=== PATIENT | male | born 1955 | race Hispanic/Latino ===

== ENCOUNTER 2017-07-25 09:13 | Emergency (ER) | payer OTHER ==
[2017-07-25 09:18] VITALS: BP 157/91; PULSE 74; TEMP 97; O2SAT 96
[2017-07-25 09:19] VITALS: BMI 34.2
--- NOTE | 2017-07-25 10:51 | ED PDOC ---
HPI: Trauma/Fall - HPI Time Seen by Provider: 07/25/17 09:25 Chief Complaint (Nursing): ENT Problem Chief Complaint (Provider): Fall injury History Per: Patient History/Exam Limitations: no limitations Onset/Duration Of Symptoms: Days (x1) Injury Occurred (Timing): Just Before Arrival Location Of Injury: Right: Wrist Associated Symptoms: denies: Dizziness Additional Complaint(s): Kike Harmon is a 61 year old male, with no past medical history, who was brought to the emergency department by EMS for nose and right wrist injury s/p fall onset prior to arrival. Patient states that [place], fell forward and face planted. Patient thinks he might have passed out. He is currently complaining of an abrasion on nose bridge and right hand pain and swelling around wrist area. He denies any chest pain, dizziness, or neck pain. No further medical complaints. PMD: None provided. - Fall Fall:Prior To Injury: Tripped, Slipped Past Medical History Reviewed: Historical Data, Nursing Documentation, Vital Signs Vital Signs: Last Vital Signs Temp 97 F L 07/25/17 09:17 Pulse 74 07/25/17 09:17 Resp BP 157/91 H 07/25/17 09:17 Pulse Ox 96 07/25/17 11:37 - Medical History PMH: Hyperlipidemia - Surgical History Surgical History: No Surg Hx - Family History Family History: States: No Known Family Hx - Social History Current smoker - smoking cessation education provided: Yes (a pack per day) Alcohol: Social Drugs: Denies - Allergies Allergies/Adverse Reactions: Allergies Allergy/AdvReac Type Severity Reaction Status Date / Time No Known Allergies Allergy Verified 07/25/17 09:21 Review of Systems ROS Statement: Except As Marked, All Systems Reviewed And Found Negative ENT: Positive for: Nose Pain (nose bridge abrasion) Cardiovascular: Negative for: Chest Pain Musculoskeletal: Positive for: Hand Pain (right, with swelling around wrist area ). Negative for: Neck Pain Neurological: Negative for: Dizziness Physical Exam - Reviewed Nursing Documentation Reviewed: Yes Vital Signs Reviewed: Yes - Physical Exam Appears: Positive for: Non-toxic Head Exam: Positive for: ATRAUMATIC, NORMAL INSPECTION, NORMOCEPHALIC Skin: Positive for: Normal Color, Warm, Dry Eye Exam: Positive for: Normal appearance, EOMI, PERRL ENT: Positive for: Other (nasal bridge appear swollen and deformed with an abrasion, but no active bleeding. no other facial injuries. no stepoff or bony deformities) Neck: Positive for: Normal, Painless ROM, Supple Cardiovascular/Chest: Positive for: Regular Rate, Rhythm. Negative for: Murmur Respiratory: Positive for: Normal Breath Sounds. Negative for: Respiratory Distress Gastrointestinal/Abdominal: Positive for: Soft. Negative for: Tenderness Back: Positive for: Normal Inspection (No spinal tenderness). Negative for: L CVA Tenderness, R CVA Tenderness Extremity: Positive for: Normal ROM (right hand), Swelling (right wrist. Neurovascular intact). Negative for: Deformity Neurologic/Psych: Positive for: Alert, Oriented (x3). Negative for: Motor/ Sensory Deficits - Laboratory Results Result Diagrams: 07/25/17 10:30 07/25/17 10:30 - ECG O2 Sat by Pulse Oximetry: 96 (RA) Pulse Ox Interpretation: Normal Medical Decision Making Medical Decision Making: Initial Impression: nose and wrist injury s/p fall. Rule out fracture, rule out electrolyte abnormality. Initial Plan: --Head w/o contrast [CT] --Orbits/ Facials w/o contrast [CT] --EKG --Comp metabolic Panel --Troponin I --CBC w/ differential --Toradol 30 mg IV --Hand right 3 views [RAD] --Wrist, right 3 views [RAD] --reevaluation 11:[address] FINDINGS: HEMORRHAGE: No intracranial hemorrhage. BRAIN: No mass effect or edema. No atrophy or chronic microvascular ischemic changes. VENTRICLES: Unremarkable. No hydrocephalus. CALVARIUM: Unremarkable. PARANASAL SINUSES: Unremarkable as visualized. No significant inflammatory changes. MASTOID AIR CELLS: Unremarkable as visualized. No inflammatory changes. OTHER FINDINGS: None. IMPRESSION: No acute intracranial abnormalities. No significant findings to account for the clinical presentation. 11:05 Wrist X-Ray FINDINGS: BONES: No acute fracture is appreciated however the ulnar styloid appear separate from the base of its normal continuous location at the distal left ulna and is suspicious for either nonunited chronic fracture or unfused ossification center. No destructive bony lesions appreciated. The carpal bones are diffusely intact without fracture, including the navicular bone. JOINTS: Normal. No dislocation. SOFT TISSUES: Normal. OTHER FINDINGS: None. IMPRESSION: No suspicious right wrist findings. 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 11:07 Hand X-Ray FINDINGS: BONES: Normal. No fractureMacro rad bone. JOINTS: Degenerative osteophyte development and cortical sclerosis appreciated at the distal interphalangeal joint of the index finger with lesser similar changes present throughout the interphalangeal joints are more diffuse basis as well as throughout the carpal metacarpal articulations, compatible with degenerative joint disease. No dislocation or subluxation is appreciated throughout the exam. SOFT TISSUES: Normal. OTHER FINDINGS: None. IMPRESSION: No acute fracture dislocation identified. Limited degenerative joint changes seen throughout the distal digits and carpal metacarpal articulations diffusely but predominately at the left index distal interphalangeal joint. 11:[address] FINDINGS: RIGHT ORBIT: RIGHT BONY ORBIT: Normal. RIGHT INTRAORBITAL STRUCTURES: Globe: Normal. Extraocular muscles: Normal. Post septal space: Normal. Optic Nerve: Normal. Lacrimal Apparatus: Normal. RIGHT PRESEPTAL SOFT TISSUES: Normal. LEFT ORBIT: LEFT BONY ORBIT: Normal. LEFT INTRAORBITAL STRUCTURES: Globe: Normal. Extraocular muscles: Normal. Post septal space: Normal Optic Nerve: Normal. . Lacrimal Apparatus: Normal. LEFT PRESEPTAL SOFT TISSUES: Normal. OTHER: There is questionable left frontal soft tissue edema. Incidental leftward bony nasal septal deviation is appreciated on a chronic basis. IMPRESSION: Questionable left frontal soft tissue edema. No fracture of either orbit or significant postseptal findings either. pt aware of results of imaging. pt utd with tetanus. ekg, labs wnl. pt has no pain. neurologically intact. stable for dc. dx mechanical fall Scribe Attestation: Documented by Jameel Engle, acting as a scribe for Colin Navas MD Provider Scribe Attestation: All medical record entries made by the Scribe were at my direction and personally dictated by me. I have reviewed the chart and agree that the record accurately reflects my personal performance of the history, physical exam, medical decision making, and the department course for this patient. I have also personally directed, reviewed, and agree with the discharge instructions and disposition. Disposition - Clinical Impression Clinical Impression: Fall, Fall from slip, trip, or stumble - Patient ED Disposition Is Patient to be Admitted: No Counseled Patient/Family Regarding: Studies Performed, Diagnosis, Need For Followup - Disposition Referrals: [facility] [Outside] [facility] [Outside] Disposition: Routine/Home Disposition Time: 11:30 Condition: IMPROVED Additional Instructions: please follow up with your primary doctor in 1-2 days for reevaluation return to the ED with any worsening or concerning symptoms. Instructions: Fall Prevention for Older Adults (ED), Fall Prevention (ED) Forms: [employer] ([place]ian)
[2017-07-25 11:01] LABS: BASO # 0.1 K/uL (0.0-0.2); BASO % 0.7 % (0.0-2.0); EOS # 0.1 K/uL (0.0-0.7); EOS % 1.2 % (0.0-4.0); HEMOGLOBIN 15.6 g/dL (12.0-18.0); LYMPH # 2.1 K/uL (1.0-4.3); LYMPH % 22.3 % (20.0-40.0); MEAN CELL VOLUME 86.3 fl (80.0-94.0); MEAN CORPUSCULAR HEMOGLOBIN 30.1 pg (27.0-31.0); MEAN CORPUSCULAR HGB CONC 34.9 g/dL (33.0-37.0); MEAN PLATELET VOLUME 8.2 fl (7.2-11.7); MONO # 0.7 K/uL (0.0-0.8); NEUT # 6.4 K/uL (1.8-7.0); NEUT % 68.8 % (50.0-75.0); NRBC % 0.1 % (0.0-0.0); RBC 5.17 Mil/uL (4.40-5.90); WHITE BLOOD COUNT 9.3 K/uL (4.8-10.8)
--- NOTE | 2017-07-25 11:04 | CT ---
PROCEDURE: CT HEAD WITHOUT CONTRAST. HISTORY: Posttraumatic headache, nosebleed. COMPARISON: None available. TECHNIQUE: Axial computed tomography images were obtained through the head/brain without intravenous contrast. Radiation dose: Total exam DLP = 928.28 mGy-cm. This CT exam was performed using one or more of the following dose reduction techniques: Automated exposure control, adjustment of the mA and/or kV according to patient size, and/or use of iterative reconstruction technique. FINDINGS: HEMORRHAGE: No intracranial hemorrhage. BRAIN: No mass effect or edema. No atrophy or chronic microvascular ischemic changes. VENTRICLES: Unremarkable. No hydrocephalus. CALVARIUM: Unremarkable. PARANASAL SINUSES: Unremarkable as visualized. No significant inflammatory changes. MASTOID AIR CELLS: Unremarkable as visualized. No inflammatory changes. OTHER FINDINGS: None. IMPRESSION: No acute intracranial abnormalities. No significant findings to account for the clinical presentation.
--- NOTE | 2017-07-25 11:07 | RAD ---
PROCEDURE: Right Wrist Radiographs. HISTORY: r hand pain COMPARISON: None. FINDINGS: BONES: No acute fracture is appreciated however the ulnar styloid appear separate from the base of its normal continuous location at the distal left ulna and is suspicious for either nonunited chronic fracture or unfused ossification center. No destructive bony lesions appreciated. The carpal bones are diffusely intact without fracture, including the navicular bone. JOINTS: Normal. No dislocation. SOFT TISSUES: Normal. OTHER FINDINGS: None. IMPRESSION: No suspicious right wrist findings. 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
--- NOTE | 2017-07-25 11:09 | RAD ---
PROCEDURE: Right Hand Radiographs. HISTORY: r hand pain sp fall COMPARISON: None. FINDINGS: BONES: Normal. No fractureMacro rad bone. JOINTS: Degenerative osteophyte development and cortical sclerosis appreciated at the distal interphalangeal joint of the index finger with lesser similar changes present throughout the interphalangeal joints are more diffuse basis as well as throughout the carpal metacarpal articulations, compatible with degenerative joint disease. No dislocation or subluxation is appreciated throughout the exam. SOFT TISSUES: Normal. OTHER FINDINGS: None. IMPRESSION: No acute fracture dislocation identified. Limited degenerative joint changes seen throughout the distal digits and carpal metacarpal articulations diffusely but predominately at the left index distal interphalangeal joint.
[2017-07-25 11:29] LABS: ALB/GLOB RATIO 1.3 (1.0-2.1); ALBUMIN 4.5 g/dL (3.5-5.0); CALCIUM 9.8 mg/dL (8.4-10.2); GFR AFRICAN-AMERICAN > 60; GFR NON-AFRICAN AMERICAN > 60
--- NOTE | 2017-07-25 11:31 | CT ---
PROCEDURE: CT ORBITS WITHOUT CONTRAST. HISTORY: facial injury COMPARISON: None available. TECHNIQUE: Axial CT images of the orbits were obtained. Coronal and sagittal reformats were generated. Radiation dose: Total exam DLP = mGy-cm. This CT exam was performed using one or more of the following dose reduction techniques: Automated exposure control, adjustment of the mA and/or kV according to patient size, and/or use of iterative reconstruction technique. FINDINGS: RIGHT ORBIT: RIGHT BONY ORBIT: Normal. RIGHT INTRAORBITAL STRUCTURES: Globe: Normal. Extraocular muscles: Normal. Post septal space: Normal. Optic Nerve: Normal. Lacrimal Apparatus: Normal. RIGHT PRESEPTAL SOFT TISSUES: Normal. LEFT ORBIT: LEFT BONY ORBIT: Normal. LEFT INTRAORBITAL STRUCTURES: Globe: Normal. Extraocular muscles: Normal. Post septal space: Normal Optic Nerve: Normal. . Lacrimal Apparatus: Normal. LEFT PRESEPTAL SOFT TISSUES: Normal. OTHER: There is questionable left frontal soft tissue edema. Incidental leftward bony nasal septal deviation is appreciated on a chronic basis. IMPRESSION: Questionable left frontal soft tissue edema. No fracture of either orbit or significant postseptal findings either.
[2017-07-25 11:51] LABS: ALT/SGPT 70 U/L (21-72); AST/SGOT 56 U/L (17-59); BLOOD UREA NITROGEN 19 mg/dl (9-20)
--- NOTE | 2017-07-25 16:43 | CARD ---
APPROVED REPORT EKG Measurement Heart [id number] <Conclusion> Normal sinus rhythm Left axis deviation Anterior infarct, age undetermined Abnormal ECG
== END 2017-07-25 12:36 | disposition home or self-care (01) ==
LOC: H.ER 09:13
DX: R55 Syncope and collapse (principal); S09.93XA Unspecified injury of face, initial encounter; S69.91XA Unspecified injury of right wrist, hand and finger(s), initial encounter; W19.XXXA Unspecified fall, initial encounter; Y92.89 Other specified places as the place of occurrence of the external cause; E78.5 Hyperlipidemia, unspecified
CPT/HCPCS: 70450; 70480; 73110; 73130; 80053; 84484; 85025; 93005; 96374; 99282; J1885